=== PATIENT | female | born 1960 | race Caucasian/White ===

== ENCOUNTER → 2017-07-01 | Outpatient (CLI) | payer BC ==
--- NOTE | 2017-07-01 15:48 | CT ---
EXAMINATION TYPE: CT chest w con DATE OF EXAM: 07/01/2017 COMPARISON: NONE HISTORY: Chest discomfort and cough for [address] DLP: 862 mGycm. Automated Exposure Control for Dose Reduction was Utilized. TECHNIQUE: CT scan of the thorax is performed following with IV Contrast, patient injected with 100 mL of Isovue 300. FINDINGS: LUNGS: Dependent atelectasis in both lower lobes is present. There is no suspicious consolidation or groundglass opacity seen bilaterally. There is no suspicious parenchymal nodule or mass. No pleural e ffusion or pneumothorax is identified bilaterally. Tracheobronchial tree is patent. MEDIASTINUM: There are no greater than 1 cm hilar or mediastinal lymph nodes. No cardiomegaly or pe ricardial effusion is seen. OTHER: There is slight underlying levoconvex scoliotic curvature centered in the upper to midthoracic spine. There is mild multilevel anterior spurring in the thoracic spine. IMPRESSION: No suspicious acute cardiopulmonary process.
== END | disposition home or self-care (01) ==
LOC: RADCTMAIN 12:46
PROVIDERS: ATTEND Internal Medicine Critical Care Medicine
DX: I27.20 Pulmonary hypertension, unspecified (principal)
CPT/HCPCS: 71260; Q9967

== ENCOUNTER → 2024-02-07 | Outpatient (CLI) | payer BC ==
--- NOTE | 2024-02-07 14:02 | US ---
EXAMINATION TYPE: US venous doppler duplex LE LT DATE OF EXAM: 02/07/2024 1:44 PM COMPARISON: NONE CLINICAL INDICATION: Female, 63 years old with history of RLE; I80.9 PHLEBITIS AND THROMBOPHLEBITIS; Left leg pain , TECHNIQUE: The lower extremity deep venous system is examined utilizing real time linear array sonog joy with graded compression, color doppler sonography, and spectral doppler. SIDE PERFORMED: left FINDINGS: VESSELS IMAGED: Common Femoral Vein Deep Femoral Vein Greater Saphenous Vein * Femoral Vein Popliteal Vein Small Saphenous Vein * Proximal Calf Veins (* superficial vessels) Left Leg: No evidence of DVT , Color Doppler imaging shows patency of the vessels. Spectral waveform s are within normal limits. IMPRESSION: No ultrasound evidence for deep venous thrombosis. [facility], , 02/07/2024 2:00 PM
== END | disposition home or self-care (01) ==
LOC: RADUSWWP 12:35
PROVIDERS: ATTEND Orthopaedic Surgery
DX: I80.9 Phlebitis and thrombophlebitis of unspecified site (principal)